=== PATIENT | male | born 1950 | race Caucasian/White ===

== ENCOUNTER 2017-06-30 16:34 | Observation (INO) | payer BC, MEDICARE ==
--- NOTE | 2017-06-30 16:57 | RAD ---
CHEST 1 VIEW: Date: 06/30/17 HISTORY: Palpitations. FINDINGS: Cardiac silhouette is magnified by projection. Pulmonary vasculature is unremarkable. Linear parenchy mal markings overlie the left lung base. Calcified granulomata are consistent with healed granulomato us disease. No lobar consolidation or evidence of pneumothorax. quality assurance monitor final leads overlie the henrik [address]. IMPRESSION: Nonspecific left basilar atelectasis. No active cardiopulmonary abnormalities are demonstrated. POS: [facility]
[2017-06-30 17:00] LABS: #Basophils 0.1 thou/uL (0.0-0.2); #Eosinphils 0.1 thou/uL (0.0-0.7); #Lymphocytes 1.9 thou/uL (1.20-3.40); #Monocytes 0.6 thou/uL (0.11-0.59); #Neutrophils 5.6 thou/uL (1.40-6.50); %Basophils 0.8 % (0.0-1.0); %Lymphocytes 23.3 % (21.0-51.0); %Monocytes 7.1 % (0.0-10.0); %Neutrophils 67.8 % (42.0-75.0); Hemoglobin 17.7 g/dL (14.0-18.0); Mean Corpuscular HGB CONC 34.8 g/dL (32.0-36.0); Mean Corpuscular Volume 89.1 fl (80.0-94.0); Mean Platelet Volume 7.6 fL (7.4-10.4); Platelet Count 197 thou/uL (130-400); RBC Distribution Width 12.3 % (11.5-14.5); White Blood Cell (WBC) Count 8.2 thou/uL (4.8-10.8)
[2017-06-30 17:08] LABS: PTT 28.4 SEC (22.9-36.1); Prothrombin Time 13.1 SEC (12.0-14.7)
[2017-06-30 17:22] LABS: ALT (SGPT) 56 U/L (8-55); AST (SGOT) 62 U/L (5-34); Albumin 4.4 g/dL (3.4-4.8); Alkaline Phosphatase 86 U/L (40-150); Anion Gap 15 mmol/L (10-20); BUN (Urea Nitrogen) 24 mg/dL (8.4-25.7); Bilirubin, Total 1.5 mg/dL (0.2-1.2); CK (CPK) 298 U/L (30-200); Calc. Creatinine Clearance 0 mL/min (70-130); Calcium 9.9 mg/dL (7.8-10.44); Carbon Dioxide 29 mmol/L (23-31); Chloride 99 mmol/L (98-107); Estimated GFR-MDRD 78; Globulin 3.5 g/dL (2.4-3.5); Glucose 97 mg/dL (80-115); Lipase 54 U/L (8-78); Potassium 4.3 mmol/L (3.5-5.1); Protein, Total 7.9 g/dL (5.8-8.1); Sodium 139 mmol/L (136-145)
[2017-06-30 17:24] LABS: Troponin I 0.011 ng/mL (< 0.028)
[2017-06-30 17:28] LABS: CKMB 7.4 ng/mL (0-6.6)
[2017-06-30] MEDS ORDERED: Nitroglycerin 2% Ointment 1 INCH/1 GM Packet ONE (17:38)
[2017-06-30] MEDS ORDERED: Acetaminophen 500 MG TAB ONE (18:22)
--- NOTE | 2017-06-30 18:25 | PDOC.FPRHP ---
- History of Present Illness Chief Complaint: Palpitations History of Present Illness: This is a 66 y/o M with a PMHx of ADHD, BPH, OA, and HTN who presented to the ED with palpitation. 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 States sensation of heart palpitations and flutters lasting around 10 minutes. Metter his pulse on carotids and notes elevated pulse to 180s. Resolved on its own. Occurred again around 1630 when he attempted to see his PCP. Associated symptoms during event includes dizziness/lightheadedness and SOB. Reports no changes in Vyvanse dosing. Has been on medication for several years. No significant prior history of these events. But reports not able to take Vyvanse before he exercises. Reports flu in April. Approximately 2 months ago, started noticing changes in his vision. Was evaluated by eye doctor and told eye changes were related to "blockage" in retinal capillaries. Otherwise denies any changes. Reports he is able to perform activities without complaints. Code status: Full ED Course: The patient was evaluated in the ED by DEE Ely and Dr. Win and was given 500mL NS bolus, 1inch nitrobid, and 243 mg aspirin. - Allergies/Adverse Reactions Allergies Allergy/AdvReac Type Severity Reaction Status Date / Time No Known Allergies Allergy Verified 06/30/17 20:05 - Home Medications Medication Instructions Recorded Confirmed Type Ascorbic Acid [Vitamin C] 1,000 mg PO DAILY 07/27/14 06/30/17 History Aspirin [Aspirin EC] 81 mg PO DAILY 07/27/14 06/30/17 History Diclofenac Sodium [Voltaren] 25 mg PO BID 07/27/14 06/30/17 History Lisdexamfetamine Dimesylate 50 mg PO BID 07/27/14 06/30/17 History [Vyvanse] Losartan/Hydrochlorothiazide 1 tab PO DAILY 07/27/14 06/30/17 History [Hyzaar] Multivitamin [Multivitamins] 1 cap PO DAILY 07/27/14 06/30/17 History Tamsulosin HCl [Flomax] 0.4 mg PO DAILY 07/27/14 06/30/17 History Glucosam/Chondr-Msm1/D3/C/Filiberto 1 each PO DAILY 06/30/17 06/30/17 History [Glucosamine-Chondr Complx Cplt] Melatonin 5 mg PO HS 06/30/17 06/30/17 History Omeprazole 20 mg PO HS 06/30/17 06/30/17 History - History PMHx: 1. HTN 2. Arthritis 3. ADHD 4. BPH PSHx: 1. [place] teeth removal 2. Vasectomy 3. Lipoma removal posterior neck FHx: Father - Colon ca Mother - stroke Social: . Former tobacco user (1 to 1/2 ppd since age 13 to 1994). Past history of alcoholism (5 years). No drug use. 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 PCP: Yolande - Review of Systems General: denies: fever/chills, weight/appetite/sleep changes, fatigue Eyes: reports: vision changes (Loss of portion of vision). denies: eye pain ENT: denies: nasal congestion, rhinorrhea Respiratory: reports: shortness of breath (During recent palpitations x2). denies: cough, congestion, exercise intolerance Cardiovascular: reports: palpitation. denies: chest pain, edema, paroxysmal nocturnal dyspnea, orthopnea Gastrointestinal: denies: nausea, vomiting, diarrhea, constipation, GI bleeding Genitourinary: denies: incontinence, dysuria, polyuria, discharge Skin: denies: rashes, lesions Musculoskeletal: reports: pain (With strenous activity), arthritis/arthralgias ( Stable). denies: tenderness, stiffness, swelling Neurological: denies: numbness, syncope, weakness Psychological: denies: anxiety, depression - Vital signs BP: 145/85 HR: 77 RR: 18 Tmax: 98.5 Pox: 98% on RA Wt: 88.45kg - Physical Exam Constitutional: NAD, awake, alert and oriented, well developed HEENT: normocephalic and atraumatic, PERRLA, EOMI, conjunctiva clear, no scleral icterus, grossly normal vision, grossly normal hearing, normal nasal mucosa, MMM Neck: supple, FROM, trachea midline, no JVD, no bruits Chest: no-tender to palpation, no lesions Heart: RRR, normal S1/S2, no murmurs/rubs/gallops, pulses present, no edema Lungs: CTAB, no respiratory distress, good air movement, no rales/rhonchi, no wheezing, no retractions Abdomen: soft, non-tender, bowel sounds present Musculoskeletal: normal structure, normal tone, ROM grossly normal Neurological: no focal deficit, CN II-XII intact, normal sensation Psychiatric: normal mood and affect, good judgment and insight, intact recent and remote memory FMR H&P: Results - Labs Result Diagrams: 06/30/17 16:49 03 16:49 Lab results: WBC 8.2 thou/uL (4.8-10.8) 06/30/17 16:49 Hgb 17.7 g/dL (14.0-18.0) 06/30/17 16:49 Hct 50.8 % (42.0-52.0) 06/30/17 16:49 MCV 89.1 fl (80.0-94.0) 06/30/17 16:49 Plt Count 197 thou/uL (130-400) 06/30/17 16:49 Neutrophils % 67.8 % (42.0-75.0) 06/30/17 16:49 Sodium 139 mmol/L (136-145) 06/30/17 16:49 Potassium 4.3 mmol/L (3.5-5.1) 06/30/17 16:49 Chloride 99 mmol/L (98-107) 06/30/17 16:49 Carbon Dioxide 29 mmol/L (23-31) 06/30/17 16:49 BUN 24 mg/dL (8.4-25.7) 06/30/17 16:49 Creatinine 0.96 mg/dL (0.6-1.3) 06/30/17 16:49 Glucose 97 mg/dL (80-115) 06/30/17 16:49 Calcium 9.9 mg/dL (7.8-10.44) 06/30/17 16:49 Total Bilirubin 1.5 mg/dL (0.2-1.2) H 06/30/17 16:49 AST 62 U/L (5-34) H 06/30/17 16:49 ALT 56 U/L (8-55) H 06/30/17 16:49 Alkaline Phosphatase 86 U/L (40-150) 06/30/17 16:49 Creatine Kinase 298 U/L (30-200) H 06/30/17 16:49 CK-MB (CK-2) 7.4 ng/mL (0-6.6) H* 06/30/17 16:49 B-Natriuretic Peptide 71.3 pg/mL (0-100) 06/30/17 16:49 Serum Total Protein 7.9 g/dL (5.8-8.1) 06/30/17 16:49 Albumin 4.4 g/dL (3.4-4.8) 06/30/17 16:49 Lipase 54 U/L (8-78) 06/30/17 16:49 - EKG Interpretation EKG: NSR, HR of 92 - Radiology Interpretation Chest x-ray Status: image reviewed by me, report reviewed by me Additional comment: Non-specific left basilar atelectasis. FMR H&P: A/P - Problem List (1) Palpitations Current Visit: Yes Status: Acute Code(s): R00.2 - PALPITATIONS (2) Abnormal cardiac enzyme level Current Visit: Yes Status: Acute Code(s): R74.8 - ABNORMAL LEVELS OF OTHER SERUM ENZYMES (3) Elevated LFTs Current Visit: Yes Status: Acute Code(s): R79.89 - OTHER SPECIFIED ABNORMAL FINDINGS OF BLOOD CHEMISTRY (4) HTN (hypertension) Current Visit: Yes Status: Acute Code(s): I10 - ESSENTIAL (PRIMARY) HYPERTENSION Qualifiers: Hypertension type: essential hypertension Qualified Code(s): I10 - Essential (primary) hypertension (5) ADHD Current Visit: Yes Status: Acute Qualifiers: Attention deficit-hyperactivity disorder type: unspecified Qualified Code(s ): F90.9 - Attention-deficit hyperactivity disorder, unspecified type (6) Arthritis Current Visit: Yes Status: Acute Code(s): M19.90 - UNSPECIFIED OSTEOARTHRITIS, UNSPECIFIED SITE (7) BPH (benign prostatic hyperplasia) Current Visit: Yes Status: Acute Code(s): N40.0 - BENIGN PROSTATIC HYPERPLASIA WITHOUT LOWER URINRY TRACT SYMP Qualifiers: Lower urinary tract symptom presence: unspecified whether lower urinary tract symptoms present Qualified Code(s): N40.0 - Benign prostatic hyperplasia without lower urinary tract symptoms - Plan Palpitations Unknown cause at this time, the patient has never had this before. Will rule out cardiac arrhythmias, hyperthyroidism, drug abuse. The patient reports tachycardia to the 180's, but it is unknown if this was sinus tachycardia. -Monitor on tele -TSH -UDS -Hold Vyvanse Abnormal Cardiac Enzymes The patient had an elevated CKMB to 7.4 as well as an elevated CK to 298 in the setting of palpitations, lightheadedness, and some SOB. Will rule-out ACS. -Stress test in AM -Trend CE -FLP to risk stratify the pt -Aspirin Elevated LFT's The patient has elevated LFT's with no known baseline. He reports that this has never been worked up before. He has a history of former alcohol abuse several years ago. -Hepatitis panel -RUQ US HTN -Continue home meds -Monitor BP ADHD -Will hold Vyvanse in the setting of palpitations and tachycardia BPH -Cont flomax Arthritis -Will hold Diclofenac in the setting of ACS rule-out VTE ppx: Lovenox Code Status: full Symptomatic meds will be provided Disposition/LOS: Obs on tele Length of stay, likely less than 48 hours FMR H&P: Upper Level - Pertinent history This is a 66 yo WM w/ PMH of HTN, ADHD, arthritis, presents w/ palpitations that started today, associated with SOB. Never had this in the past. He has been taking vyvanse for years and hasn't changed his dose recently. Yesterday he was outside doing more work than normal. PE: Gen: Pleasant, afebrile, AOx4 in no acute distress. CV: RRR. No murmurs. Neck: No carotid buis Resp: CTA bilaterally Abd: Soft non-tender, no rebound, no guarding. LE: no edema. Pulses +2 bilaterally pedal. 1) Palpitations - Admit to telemetry and observation. Will start ASA. Initial CK elevated. Will repeat CE x3, repeat EKG in am as had non-specific T wave changes. No ST elevation on EKG. Labs in am for FLP, TSH, Mag, Phos, UDS. Will hold NSAIDs and Vyvanse. Stress test in am. 2) HTN urgency - BP normalized with nitro paste. Will continue to monitor and add BP medications as needed. Currently asymptomatic. 3) Transamonitis - f/u with Hepatitis panel, RUQ US. 4) Sinus Tachycardic - Monitor on telemetry. S/p 500mL NS fluid bolus. 5) Elevated CK-MB and CK. Encourage PO intake of fluids. - Plan Date/Time: 06/30/171822 I, [], have evaluated this patient and agree with findings/plan as outlined by mechanical intern resident. Pertinent changes/additions are listed here. Attending Addendum - Attending Addendum Date/Time: 06/30/171855 I personally evaluated the patient and discussed the management with Dr. Middleton and Heriberto Antoine I agree with the History, Examination, Assessment and Plan documented above with any addition or exceptions noted below. 66 yo male with history of HTN, BPH, ADHD, and OsteoArthritis presents to [facility] ER for evaluation of 2 episodes of palpitations. Brief 10 min episodes today. Resolved on their own. Associated with SOB and lightheadedness. Initial cardiac labs mildly elevated CKMB and CK. However, trop I WNL. BP and HR stable during exam. EKG NSR. On review, noticed he has had evidence of mild palpitation with heavy exercise when he takes Vyvanse. Plan: Will admit to tele. Monitor overnight. Trend CE. Repeat EKG as needed. Hold Vyvanse. Stress in AM. On labs, noted to have elevated liver enzymes with past hx of EtOH abuse. Trend. Hep panel and RUQ sono. Will also rule out other possible co-morbidities. Chelita
[2017-06-30 19:42] VITALS: BMI 28.5
[2017-06-30] MEDS ORDERED: Nitroglycerin 0.4 MG TAB (25 Tab Bottle) PO PRN (19:49)
[2017-06-30] MEDS ORDERED: Senokot 8.6 MG TAB PO PRN (19:49)
[2017-06-30] MEDS ORDERED: Bisacodyl 5 MG TAB PO PRN (19:49)
[2017-06-30] MEDS ORDERED: Sodium Chloride 0.9% 1,000 ML IV SCH (20:15)
[2017-06-30] MEDS ORDERED: Ondansetron HCl/PF 4 MG/2 ML Vial IVP PRN (20:15)
[2017-06-30] MEDS ORDERED: Ondansetron ODT 4 MG TAB SL PRN (20:15)
[2017-06-30 20:29] LABS: Hemoglobin A1c 5.5 % (4.0-6.0)
[2017-06-30 20:41] LABS: Troponin I 0.013 ng/mL (< 0.028)
[2017-06-30 20:47] LABS: Magnesium 2.1 mg/dL (1.6-2.6); Phosphorus 3.4 mg/dL (2.3-4.7)
[2017-06-30 21:09] LABS: Thyroid Stimulating Hormone 1.5743 uIU/mL (0.35-4.94)
[2017-06-30 21:11] LABS: Amphetamine Detected (NotDetected); Barbiturates Screen Not Detected (NotDetected); Benzodiazepine Screen Not Detected (NotDetected); Cocaine Metabolite Screen Not Detected (NotDetected); Medtox Control Line Valid? VALID (VALID); Medtox Reader # READER 4; Methadone Not Detected (NotDetected); Methamphetamine Not Detected (NotDetected); Opiate Screen Not Detected (NotDetected); Oxycodone Screen Not Detected (NotDetected); Phencyclidine (PCP) Not Detected (NotDetected); THC/Cannabinoid Screen Not Detected (NotDetected); Tricyclic Screen Not Detected (NotDetected)
[2017-06-30] MEDS ORDERED: Melatonin 3 MG TAB PO SCH (23:15)
[2017-06-30 23:22] LABS: HBSAg Index 0.19 S/CO (0-0.99); Hep B Core Total Ab Non-Reactive (NonReactive); Hep B Core Total Index 0.07 S/CO (0-0.79); Hep B Surf Ag Non-Reactive S/CO (NonReactive); Hep C IgG Ab Non-Reactive (NonReactive); Hep C Index 0.19 S/CO (0-0.79)
[2017-06-30 23:23] LABS: CKMB 5.1 ng/mL (0-6.6); Troponin I 0.014 ng/mL (< 0.028)
[2017-06-30 23:28] LABS: HBSAB Concentration 0.03 mIU/mL; Hep B Surf AB Non-Reactive (NonReactive)
[2017-07-01 05:24] LABS: ALT (SGPT) 48 U/L (8-55); AST (SGOT) 44 U/L (5-34); Albumin 3.7 g/dL (3.4-4.8); Alkaline Phosphatase 71 U/L (40-150); Anion Gap 11 mmol/L (10-20); BUN (Urea Nitrogen) 21 mg/dL (8.4-25.7); Bilirubin, Total 1.3 mg/dL (0.2-1.2); CK (CPK) 157 U/L (30-200); Calc. Creatinine Clearance 95 mL/min (70-130); Calcium 9.3 mg/dL (7.8-10.44); Carbon Dioxide 29 mmol/L (23-31); Cardiac Risk 3.3 (Less than 4.5); Chloride 102 mmol/L (98-107); Cholesterol 133 mg/dl (< 200 Desired); Estimated GFR-MDRD 78; Globulin 2.8 g/dL (2.4-3.5); Glucose 106 mg/dL (80-115); HDL Cholesterol 40 mg/dL (>60 Neg Risk); LDL Cholesterol, Calculated 66 mg/dL; Potassium 3.4 mmol/L (3.5-5.1); Protein, Total 6.5 g/dL (5.8-8.1); Sodium 139 mmol/L (136-145); Triglycerides 135 mg/dL (Less than 150)
--- NOTE | 2017-07-01 06:23 | PDOC.FM ---
- Subjective Subjective: Patient is asymptomatic. No complaints. - Objective MAR Reviewed: Yes Vital Signs & Weight: Vital Signs (12 hours) Temp Pulse Resp BP BP Pulse Ox 07/01/17 03:50 98.4 F 55 L 12 132/76 99 06/30/17 20:04 99 06/30/17 19:46 98.6 F 76 20 06/30/17 19:45 98.6 F 76 20 143/86 H 100 Weight Weight 88.587 kg I&O: 06/29/17 06/30/17 07/01/17 06:59 06:59 06:59 Intake Total 550 Output Total 400 Balance 150 Result Diagrams: 06/30/17 16:49 07/01/17 04:55 <Elizabeth Buitrago - Last Filed: 07/01/17 14:54> - Objective Vital Signs & Weight: Vital Signs (12 hours) Temp Pulse Resp BP Pulse Ox 07/01/17 13:00 97.8 F 71 17 143/75 H 100 07/01/17 08:20 97.5 F L 59 L 16 07/01/17 07:50 97.5 F L 59 L 16 152/82 H 96 Weight Weight 88.587 kg I&O: 06/30/17 07/01/17 07/02/17 06:59 06:59 06:59 Intake Total 550 240 Output Total 400 Balance 150 240 Result Diagrams: 06/30/17 16:49 07/01/17 04:55 <Timo Lazcano - Last Filed: 07/01/17 18:54> Phys Exam - Physical Examination Constitutional: NAD Respiratory: clear to auscultation bilateral Cardiovascular: RRR Gastrointestinal: soft, non-tender Musculoskeletal: no edema, pulses present Neurological: moves all 4 limbs Psychiatric: A&O x 3 <Elizabeth Buitrago - Last Filed: 07/01/17 14:54> Dx/Plan (1) Palpitations Code(s): R00.2 - PALPITATIONS Status: Acute Plan: Likely secondary to SVT. No events on telemetry. TSH wnl. Stress test today to r/o ACS. recommend discontinuing Vyvanse. (2) HTN (hypertension) Code(s): I10 - ESSENTIAL (PRIMARY) HYPERTENSION Status: Acute QualifierTitle: Hypertension type: essential hypertension Qualified Code( s): I10 - Essential (primary) hypertension Plan: BP stable. Continue home antihypertensives. (3) Arthritis Code(s): M19.90 - UNSPECIFIED OSTEOARTHRITIS, UNSPECIFIED SITE Status: Acute (4) BPH (benign prostatic hyperplasia) Code(s): N40.0 - BENIGN PROSTATIC HYPERPLASIA WITHOUT LOWER URINRY TRACT SYMP Status: Acute QualifierTitle: Lower urinary tract symptom presence: unspecified whether lower urinary tract symptoms present Qualified Code(s): N40.0 - Benign prostatic hyperplasia without lower urinary tract symptoms Plan: Continue Flomax. (5) Elevated LFTs Code(s): R79.89 - OTHER SPECIFIED ABNORMAL FINDINGS OF BLOOD CHEMISTRY Status : Acute Plan: Improving. RUQ pending. (6) ADHD Status: Acute QualifierTitle: Attention deficit-hyperactivity disorder type: unspecified Qualified Code(s): F90.9 - Attention-deficit hyperactivity disorder, unspecified type Plan: Vyvanse held. <Elizabeth Buitrago - Last Filed: 07/01/17 14:54> Attending Addendum - Attending Addendum Date/Time: 07/01/17 020 I personally evaluated the patient and discussed the management with Dr. Buitrago I agree with the History, Examination, Assessment and Plan documented above with any addition or exceptions noted below.Patient with negative stress test rec avoid stimulants caffiene, pseudoephedrine,OTC decongestant cold remedies symptoms likely related to stimulant RX yvanse advised outpatient event monitoring and hold vyvanse discuss suitable alternative with PCP. Patient endorses he took bupropion while living in [place]. Patient is stable for discharge . <Timo Lazcano - Last Filed: 07/01/17 18:54>
--- NOTE | 2017-07-01 07:40 | ULT ---
SONOGRAM RIGHT UPPER QUADRANT: HISTORY: Abnormal liver function tests. FINDINGS: Gallbladder has a normal appearance without evidence of stones. The common duct is 0.3 cm diameter. The liver is heterogeneous and diffusely echogenic without focal mass or intrahepatic biliary dilata tion. No free fluid. Multiple cysts arise from the cortex of the right kidney. Hyperechoic foci ar e also present and may represent nonobstructing urinary tract stones or cortical calcifications. IMPRESSION: 1. No evidence of gallstones or biliary obstruction. 2. Hepatosteatosis. POS: [facility]
[2017-07-01] MEDS ORDERED: Prevnar 13-Val Conj/PF 0.5 ML SYRINGE IM ONE (09:00)
[2017-07-01] MEDS ORDERED: Tamsulosin HCl 0.4 MG CAP PO SCH (09:00)
[2017-07-01] MEDS ORDERED: Losartan/Hydrochlorothiazide 100 mg/25 mg Tablet PO SCH (09:00)
[2017-07-01] MEDS ORDERED: Aspirin 325 MG TAB PO SCH (09:00)
[2017-07-01] MEDS ORDERED: Ascorbic Acid 500 mg Chewable Tablet PO SCH (09:00)
[2017-07-01] MEDS ORDERED: Enoxaparin Sodium 40 MG/0.4 ML SYRINGE SC SCH (09:00)
[2017-07-01 13:05] VITALS: BP 143/75; TEMP 97.8
--- NOTE | 2017-07-01 13:40 | NM ---
CARDIAC SPECT: HISTORY: A 66-year-old male with chest pain, hypertension, family history of coronary artery disease. TECHNIQUE: A myocardial perfusion scan was performed using the single-isotope 1-day protocol with Technetium 99m sestamibi. Nine mCi were injected intravenously for the rest exam followed by 27 mCi for the stress study. Exercise stress was monitored and interpreted by Adolfo Fischer FINDINGS: Homogeneous tracer distribution is seen on the myocardial segments on stress and rest images without fixed or reversible defects. GATED SPECT LVEF: 56%. WALL MOTION EXAM: Normal. IMPRESSION: Normal myocardial perfusion scan. POS: [facility]
[2017-07-01] MEDS ORDERED: Melatonin 3 MG TAB PO SCH (21:00)
[2017-07-01] MEDS ORDERED: Atorvastatin Calcium 40 MG TAB PO SCH (21:00)
--- NOTE | 2017-07-02 13:51 | DIS-2 ---
DATE OF ADMISSION: 06/30/2017 DATE OF DISCHARGE: 07/01/2017 RESIDENT: Elizabeth Buitrago M.D., PGY-2. ADMITTING ATTENDING: Yael Bartlett M.D. DISCHARGE ATTENDING: Timo Lazcano M.D. CONSULTS: None. PROCEDURES: 1. Chest x-ray that showed nonspecific left bibasilar atelectasis, otherwise no acute cardiopulmonar y process. 2. Nuclear medicine stress test which showed normal myocardial perfusion, left ventricular EF 56%. 3. Right upper quadrant ultrasound that showed no evidence of gallstones or biliary obstruction; hep naomi steatosis. PRIMARY DIAGNOSES: 1. Palpitations. 2. Elevated liver function tests. SECONDARY DIAGNOSES: 1. Attention deficit hyperactivity disorder. 2. Benign prostatic hypertension. 3. Arthritis. 4. Hypertension. DISCHARGE MEDICATIONS: 1. Atorvastatin 40 mg p.o. at bedtime. 2. Melatonin 5 mg p.o. at bedtime. 3. Omeprazole 20 mg p.o. at bedtime. 4. Aspirin 81 mg p.o. daily. 5. Diclofenac sodium 25 mg p.o. b.i.d. 6. Hyzaar 100 mg/25 mg 1 tab p.o. daily. 7. Multivitamins. 8. Flomax 0.4 mg p.o. daily. 9. Vitamin C 1000 mg p.o. daily. 10. Glucosamine chondroitin complex 1 tablet p.o. daily. DISCONTINUED MEDICATIONS: Vyvanse 50 mg p.o. b.i.d. HISTORY OF PRESENT ILLNESS AND HOSPITAL COURSE: The patient is a 66-year-old male with a chief compl aint of palpitations that occurred on two separate occasions and each were accompanied by shortness o f breath. The patient was given fluids, possible nitro and aspirin in the emergency department. He was admitted to telemetry for further monitoring. A nuclear medicine stress test was ordered to rule out coronary artery disease. TSH was normal. Nuclear medicine stress test was normal as well and n o events were captured on telemetry overnight. It was thought that patient's palpitations were essen tially related to a SVT, possibly secondary to Vyvanse use. For this reason, it was recommended that the patient discuss potentially discontinuing Vyvanse and transitioning to a non-stimulant medicatio n. The patient may also benefit from Holter monitoring to capture any future palpitations. Regarding patient's elevated liver function tests, the patient was found to have on admission AST of 62, ALT of 56, total bilirubin of 1.5, direct bilirubin 0.5. The patient has a former history of alc ohol abuse. A right upper quadrant ultrasound was ordered which showed the above findings. The martha ent was started on high dose statin therapy. He will need further outpatient followup regarding fatt y liver disease. Regarding patient's chronic medical problems, all home medications were restarted and his problems re mained stable. DISPOSITION: Stable. DISCHARGE INSTRUCTIONS: 1. Location: Home. 2. Diet: Heart healthy. 3. Activity: Ad mitesh. 4. Followup: The patient may follow up with either his primary care provider, Dr. Bocanegra in 7-10 days.
--- NOTE | 2017-07-05 12:37 | EKG ---
Test Reason : Blood Pressure : / mmHG Vent. Rate : 092 BPM Atrial Rate : 092 BPM P-R Int : 130 ms QRS Dur : 090 ms QT Int : 364 ms P-R-T Axes : 020 002 -02 degrees QTc Int : 450 ms Normal sinus rhythm Normal ECG Confirmed by TOÑITO CORTES, SOLOMON ([id number]), movie editor ROX PACHECO ([id number]) on 07/05/2017 12:36:16 PM Referred By: Confirmed By:SOLOMON SIBLEY MD
--- NOTE | 2017-07-08 19:51 | EKG ---
Test Reason : Blood Pressure : / mmHG Vent. Rate : 077 BPM Atrial Rate : 077 BPM P-R Int : 144 ms QRS Dur : 084 ms QT Int : 388 ms P-R-T Axes : 052 013 006 degrees QTc Int : 439 ms Normal sinus rhythm Nonspecific ST abnormality Abnormal ECG When compared with ECG of 27-JUL-2014 08:33, No significant change was found Confirmed by CHRISTIANA MIGUEL (2) on 07/08/2017 7:51:08 PM Referred By: HILLARY Confirmed By:CHRISTIANA MIGUEL
--- NOTE | 2017-07-08 19:55 | EKG ---
Test Reason : Blood Pressure : / mmHG Vent. Rate : 054 BPM Atrial Rate : 054 BPM P-R Int : 150 ms QRS Dur : 098 ms QT Int : 450 ms P-R-T Axes : 028 -03 023 degrees QTc Int : 426 ms Sinus bradycardia Minimal voltage criteria for LVH, may be normal variant Nonspecific T wave abnormality Abnormal ECG When compared with ECG of 30-JUN-2017 21:07, (Unconfirmed) No significant change was found Confirmed by CHRISTIANA MIGUEL (2) on 07/08/2017 7:55:31 PM Referred By: JOSE ALFREDO SCANLON Confirmed By:CHRISTIANA MIGUEL
== END 2017-07-01 15:28 | disposition home or self-care (01) ==
LOC: ERS 16:34 → 2SW 19:31
PROVIDERS: ADMIT Family Medicine; ATTEND Family Medicine
DX: R00.2 Palpitations (principal); F90.9 Attention-deficit hyperactivity disorder, unspecified type; N40.0 Benign prostatic hyperplasia without lower urinary tract symptoms; M19.90 Unspecified osteoarthritis, unspecified site; I10 Essential (primary) hypertension; R74.8 Abnormal levels of other serum enzymes; R79.89 Other specified abnormal findings of blood chemistry; Z79.82 Long term (current) use of aspirin; Z79.899 Other long term (current) drug therapy; Z98.52 Vasectomy status; Z98.818 Other dental procedure status; Z98.890 Other specified postprocedural states; Z87.891 Personal history of nicotine dependence
CPT/HCPCS: 71045; 76705; 78452; 80053; 80061; 80306; 82248; 82550 ×2; 82553 ×2; 83036; 83690; 83735; 83880; 84100; 84484 ×2; 85610; 85730; 86704; 86706; 86708; 86803; 87340; 93005 ×2; 93017; 94760 ×2; 99285; A9500; G0378; 36415; 84443; 85025; 93010; 96360; A4216; J1650

== ENCOUNTER 2017-07-09 23:12 | Emergency (ER) | payer MEDICARE ==
[2017-07-10] MEDS ORDERED: Clindamycin 150 MG CAP ONE (02:47)
[2017-07-10] MEDS ORDERED: Ketorolac Tromethamine 30 MG/ML VIAL ONE (02:47)
== END 2017-07-10 03:28 | disposition home or self-care (01) ==
LOC: ERS 23:12
DX: K02.9 Dental caries, unspecified (principal); I10 Essential (primary) hypertension; F90.9 Attention-deficit hyperactivity disorder, unspecified type; Z87.891 Personal history of nicotine dependence; Z79.899 Other long term (current) drug therapy
CPT/HCPCS: 96372; J1885

== ENCOUNTER 2019-09-29 10:54 | Outpatient (CLI) | payer MEDICARE, OTHER | END 2019-09-29 10:55 | disposition home or self-care (01) | LOC: LABBT 10:54 | PROVIDERS: ATTEND Internal Medicine Cardiovascular Disease | DX: Z01.812 Encounter for preprocedural laboratory examination (principal); Z11.59 Encounter for screening for other viral diseases; I47.1 Supraventricular tachycardia | CPT/HCPCS: 87635; U0003 ==

== ENCOUNTER 2019-11-08 09:35 | Inpatient (IN) | payer MEDICARE ==
--- NOTE | 2019-11-08 10:41 | CT ---
CT BRAIN WITHOUT CONTRAST: HISTORY: Injury, headache FINDINGS: No evidence of acute infarct, intra-axial hemorrhage, midline shift or abnormal extra-axial fluid col lections is seen. There is a small amount of acute subdural hemorrhage in the falx and the tentorium. The ventricular size is appropriate and the basilar cisterns are patent. The bony calvariu m is intact. The visualized paranasal sinuses and mastoid air cells are well aerated. IMPRESSION: Small acute subdural hematoma. Discussed over the telephone with ER physician Dr. Arrieta at 10:37 AM
[2019-11-08] MEDS ORDERED: Adacel (T-DAP) 0.5 ML SYRINGE ONE (10:45)
[2019-11-08] MEDS ORDERED: Bacitracin 1 PK ONE (10:45)
[2019-11-08] MEDS ORDERED: Lidocaine 1% PF 5 ML VIAL ONE (10:52)
[2019-11-08] MEDS ORDERED: Lidocaine 1% (PF) 30 ML VIAL ONE ×2 (10:54→11:05)
[2019-11-08] MEDS ORDERED: Lidocaine 1% w/Epinephrine 1:100K 20 ML VIAL ONE (10:56)
[2019-11-08] MEDS ORDERED: Ondansetron PF 4 MG/2 ML Vial IVP PRN ×2 (11:39→19:38)
[2019-11-08] MEDS ORDERED: Dextrose 5% in Water 1,000 ML IV PRN (11:39)
[2019-11-08] MEDS ORDERED: Dextrose 50% Abboject 50 ML SYRINGE SLOW IVP PRN ×2 (11:39→19:37)
[2019-11-08] MEDS ORDERED: hydrALAZINE 20 MG/ML VIAL SLOW IVP PRN ×2 (11:39→19:38)
[2019-11-08] MEDS ORDERED: traMADol HCl 50 MG TAB PO PRN ×4 (11:44→19:39)
[2019-11-08] MEDS ORDERED: Sodium Chloride 0.9% 1,000 ML IV SCH (11:45)
--- NOTE | 2019-11-08 12:05 | CT ---
CT CERVICAL SPINE WITH CORONAL AND SAGITTAL REFORMATIONS AND NO IV CONTRAST: HISTORY: Injury, neck pain FINDINGS: Multilevel degenerative changes are present. There is loss of cervical lordosis. No fracture, subluxation or facet malalignment is identified. No prevertebral soft tissue swelling is apparent. The visualized lung apices are unremarkable. IMPRESSION: No CT evidence for fracture or traumatic subluxation.
[2019-11-08 12:06] LABS: PTT 24.2 sec (22.9-36.1); Prothrombin Time 12.7 sec (12.0-14.7)
[2019-11-08 12:07] LABS: #Basophils 0.1 thou/uL (0.0-0.2); #Monocytes 0.6 thou/uL (0.11-0.59); #Neutrophils 12.2 thou/uL (1.40-6.50); %Basophils 0.5 % (0.0-1.0); %Eosinophils 0.2 % (0.0-10.0); %Lymphocytes 7.5 % (21.0-51.0); %Monocytes 4.1 % (0.0-10.0); %Neutrophils 87.7 % (42.0-75.0); Hemoglobin 17.6 g/dL (14.0-18.0); Mean Corpuscular HGB CONC 33.8 g/dL (32.0-36.0); Mean Corpuscular Hemoglobin 30.2 pg (27.0-31.0); Mean Corpuscular Volume 89.4 fL (78.0-98.0); Platelet Count 176 thou/uL (130-400); RBC Distribution Width 12.6 % (11.5-14.5); Red Blood Cell (RBC) Count 5.81 mill/uL (4.70-6.10); White Blood Cell (WBC) Count 13.9 thou/uL (4.8-10.8)
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
[2019-11-08 12:22] LABS: Lactic Acid 1.4 mmol/L (0.5-2.2)
[2019-11-08 12:26] LABS: ALT (SGPT) 49 U/L (8-55); AST (SGOT) 56 U/L (5-34); Albumin 4.6 g/dL (3.4-4.8); Alkaline Phosphatase 84 U/L (40-110); Anion Gap 13 mmol/L (10-20); BUN (Urea Nitrogen) 22 mg/dL (8.4-25.7); Bilirubin, Total 2.5 mg/dL (0.2-1.2); Calc. Creatinine Clearance 0 mL/min (70-130); Calcium 10.5 mg/dL (7.8-10.44); Carbon Dioxide 28 mmol/L (23-31); Chloride 102 mmol/L (98-107); Estimated GFR-MDRD 64; Globulin 3.3 g/dL (2.4-3.5); Glucose 117 mg/dL (80-115); Magnesium 2.2 mg/dL (1.6-2.6); Phosphorus 2.4 mg/dL (2.3-4.7); Potassium 3.4 mmol/L (3.5-5.1); Protein, Total 7.9 g/dL (5.8-8.1); Sodium 140 mmol/L (136-145)
[2019-11-08] MEDS ORDERED: Potassium Phosphate 30 MMOL in Sodium Chloride 0.9% 250 ML 250 ML IVPB SCH (14:00)
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
[2019-11-08] MEDS: Acetaminophen 500 MG TAB PO SCH ×3 (16:11→23:26)
[2019-11-08 16:25] VITALS: BMI 27.1
[2019-11-08] MEDS: Bacitracin 1 PK TOP SCH (19:44)
[2019-11-08] MEDS: Senokot S 8.6-50 MG TAB PO SCH (19:44)
[2019-11-08] MEDS ORDERED: Famotidine/PF 20 mg/2ml Vial SLOW IVP SCH (21:00)
[2019-11-08] MEDS ORDERED: Senokot S 8.6-50 MG TAB PO SCH (21:00)
[2019-11-08] MEDS ORDERED: Losartan/Hydrochlorothiazide 100 mg/25 mg Tablet PO SCH ×2 (21:00)
[2019-11-08] MEDS ORDERED: Bacitracin 1 PK TOP SCH (21:00)
[2019-11-09] MEDS: Acetaminophen 500 MG TAB PO SCH ×2 (05:43→12:14)
--- NOTE | 2019-11-09 08:26 | CT ---
CT Brain WO Con HISTORY: Follow-up of subdural hematoma COMPARISON: Previous day FINDINGS: The small acute subdural hematoma noted on the previous exam is stable. No new areas of infarcts or h emorrhages are seen. IMPRESSION: Stable exam.
[2019-11-09] MEDS ORDERED: Tamsulosin HCl 0.4 MG CAP PO SCH ×2 (09:00)
[2019-11-09] MEDS ORDERED: Polyethylene Glycol 3350 17 GM Packet PO SCH ×3 (09:00)
[2019-11-09] MEDS: Bacitracin 1 PK TOP SCH (09:36)
[2019-11-09] MEDS: Senokot S 8.6-50 MG TAB PO SCH (09:51)
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
[2019-11-09 12:03] VITALS: BP 143/80; TEMP 98.2
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
== END 2019-11-09 13:10 | disposition home or self-care (01) | DRG 86 ==
LOC: ERS 09:35 → SURG A 15:47
PROVIDERS: ADMIT Specialist; ATTEND Specialist
PROC: 0CQ0XZZ Repair Upper Lip, External Approach (ICD-10-PCS; principal; 2019-11-08)
DX: S06.5X1A Traumatic subdural hemorrhage with loss of consciousness of 30 minutes or less, initial encounter (principal); I47.1 Supraventricular tachycardia; I10 Essential (primary) hypertension; N40.0 Benign prostatic hyperplasia without lower urinary tract symptoms; S80.812A Abrasion, left lower leg, initial encounter; S80.811A Abrasion, right lower leg, initial encounter; S40.811A Abrasion of right upper arm, initial encounter; R40.2362 Coma scale, best motor response, obeys commands, at arrival to emergency department; R40.2142 Coma scale, eyes open, spontaneous, at arrival to emergency department; R40.2252 Coma scale, best verbal response, oriented, at arrival to emergency department; V23.4XXA Motorcycle driver injured in collision with car, pick-up truck or van in traffic accident, initial encounter; S01.511A Laceration without foreign body of lip, initial encounter; Y92.410 Unspecified street and highway as the place of occurrence of the external cause; Z79.899 Other long term (current) drug therapy
CPT/HCPCS: 36415; 70450; 70486; 72125; 80053; 83605; 83735; 84100; 85025; 85610; 85730; 90715; J2001; J7050

== ENCOUNTER 2020-09-23 19:30 | Outpatient (CLI) | payer MEDICARE | END 2020-09-23 19:31 | disposition home or self-care (01) | LOC: SLEEPLAB 19:30 | PROVIDERS: ATTEND Family Medicine | DX: G47.33 Obstructive sleep apnea (adult) (pediatric) (principal); R06.83 Snoring; G47.00 Insomnia, unspecified; I10 Essential (primary) hypertension; F90.9 Attention-deficit hyperactivity disorder, unspecified type; G47.10 Hypersomnia, unspecified | CPT/HCPCS: 95811 ==

== ENCOUNTER 2021-03-11 16:34 | Inpatient (IN) | payer MEDICARE ==
[2021-03-11] MEDS ORDERED: Aspirin Chewable 81 MG TAB ONE (16:49)
[2021-03-11] MEDS ORDERED: Metoprolol Tartrate 5 MG/5 ML VIAL ONE (16:49)
[2021-03-11 17:03] LABS: #Basophils 0.1 thou/uL (0.0-0.2); #Eosinphils 0.1 thou/uL (0.0-0.7); #Lymphocytes 1.9 thou/uL (1.20-3.40); #Monocytes 0.8 thou/uL (0.11-0.59); #Neutrophils 6.5 thou/uL (1.40-6.50); %Basophils 0.8 % (0.0-1.0); %Eosinophils 1.2 % (0.0-10.0); %Lymphocytes 20.6 % (21.0-51.0); %Monocytes 8.5 % (0.0-10.0); Hemoglobin 17.8 g/dL (14.0-18.0); Mean Corpuscular HGB CONC 35.1 g/dL (32.0-36.0); Mean Corpuscular Hemoglobin 31.3 pg (27.0-31.0); Mean Corpuscular Volume 89.2 fL (78.0-98.0); Mean Platelet Volume 9.1 fL (7.4-10.4); Platelet Count 177 thou/uL (130-400); RBC Distribution Width 12.3 % (11.5-14.5); Red Blood Cell (RBC) Count 5.69 mill/uL (4.70-6.10); White Blood Cell (WBC) Count 9.4 thou/uL (4.8-10.8)
[2021-03-11 17:18] LABS: ALT (SGPT) 18 U/L (8-55); AST (SGOT) 33 U/L (5-34); Albumin 4.2 g/dL (3.4-4.8); Alkaline Phosphatase 74 U/L (40-110); Anion Gap 15 mmol/L (10-20); BUN (Urea Nitrogen) 15 mg/dL (8.4-25.7); Bilirubin, Total 2.3 mg/dL (0.2-1.2); Calc. Creatinine Clearance 0 mL/min (70-130); Carbon Dioxide 25 mmol/L (23-31); Chloride 103 mmol/L (98-107); Globulin 3.4 g/dL (2.4-3.5); Glucose 105 mg/dL (80-115); Potassium 3.7 mmol/L (3.5-5.1); Protein, Total 7.6 g/dL (5.8-8.1); Sodium 139 mmol/L (136-145)
[2021-03-11 18:36] LABS: Prothrombin Time 12.7 sec (12.0-14.7)
[2021-03-11] MEDS ORDERED: Acetaminophen 325 MG TAB PO PRN (19:10)
[2021-03-11] MEDS ORDERED: Ondansetron ODT 4 MG TAB PO PRN (19:10)
[2021-03-11] MEDS ORDERED: Enoxaparin Sodium 40 MG/0.4 ML SYRINGE SC SCH ×2 (19:15→22:15)
[2021-03-11 20:32] LABS: Phosphorus 3.7 mg/dL (2.3-4.7)
[2021-03-11 20:51] VITALS: BMI 26.8
[2021-03-11] MEDS ORDERED: Losartan/Hydrochlorothiazide 100 mg/25 mg Tablet PO SCH (21:00)
[2021-03-12 05:33] LABS: #Basophils 0.1 thou/uL (0.0-0.2); #Eosinphils 0.2 thou/uL (0.0-0.7); #Lymphocytes 1.9 thou/uL (1.20-3.40); #Monocytes 0.7 thou/uL (0.11-0.59); #Neutrophils 4.1 thou/uL (1.40-6.50); %Eosinophils 2.2 % (0.0-10.0); %Lymphocytes 27.5 % (21.0-51.0); %Monocytes 10.3 % (0.0-10.0); Hemoglobin 16.9 g/dL (14.0-18.0); Mean Corpuscular HGB CONC 32.4 g/dL (32.0-36.0); Mean Corpuscular Hemoglobin 29.3 pg (27.0-31.0); Mean Corpuscular Volume 90.3 fL (78.0-98.0); Platelet Count 172 thou/uL (130-400); RBC Distribution Width 12.4 % (11.5-14.5); Red Blood Cell (RBC) Count 5.76 mill/uL (4.70-6.10)
[2021-03-12 05:50] LABS: Bilirubin, Direct 0.6 mg/dL (0.1-0.3); Bilirubin, Total 2.6 mg/dL (0.2-1.2)
[2021-03-12 05:56] LABS: ALT (SGPT) 16 U/L (8-55); AST (SGOT) 22 U/L (5-34); Albumin 3.8 g/dL (3.4-4.8); Alkaline Phosphatase 67 U/L (40-110); Anion Gap 13 mmol/L (10-20); BUN (Urea Nitrogen) 14 mg/dL (8.4-25.7); Bilirubin, Total 2.7 mg/dL (0.2-1.2); Calc. Creatinine Clearance 71 mL/min (70-130); Calcium 9.6 mg/dL (7.8-10.44); Carbon Dioxide 30 mmol/L (23-31); Chloride 103 mmol/L (98-107); Globulin 2.8 g/dL (2.4-3.5); Glucose 89 mg/dL (80-115); Potassium 3.8 mmol/L (3.5-5.1); Protein, Total 6.6 g/dL (5.8-8.1); Sodium 142 mmol/L (136-145)
[2021-03-12] MEDS ORDERED: Enoxaparin Sodium 80 MG/0.8 ML SYRINGE SC SCH (09:00)
[2021-03-12] MEDS ORDERED: Tamsulosin HCl 0.4 MG CAP PO SCH (09:00)
[2021-03-12] MEDS ORDERED: Enoxaparin Sodium 40 MG/0.4 ML SYRINGE SC SCH (09:00)
[2021-03-12 11:12] LABS: SARS-CoV-2 PCR by NAA Not Detected (NotDetected)
[2021-03-12 15:41] VITALS: BP 151/86; TEMP 97.5
[2021-03-12] MEDS ORDERED: Dronedarone HCl 400 MG TAB PO SCH (17:00)
[2021-03-12] MEDS ORDERED: Apixaban 5 MG TAB PO SCH (21:00)
== END 2021-03-12 16:30 | disposition home or self-care (01) | DRG 310 ==
LOC: ERS 16:34 → 2SW 18:44 → OBSVTOIN 03-12 07:23
PROVIDERS: ADMIT Student in an Organized Health Care Education/Training Program; ATTEND Student in an Organized Health Care Education/Training Program
DX: I48.0 Paroxysmal atrial fibrillation (principal); I10 Essential (primary) hypertension; N40.0 Benign prostatic hyperplasia without lower urinary tract symptoms; Z66 Do not resuscitate; I47.1 Supraventricular tachycardia; F90.9 Attention-deficit hyperactivity disorder, unspecified type; G47.33 Obstructive sleep apnea (adult) (pediatric); M19.90 Unspecified osteoarthritis, unspecified site; Z20.822 Contact with and (suspected) exposure to COVID-19; Z88.8 Allergy status to other drugs, medicaments and biological substances
CPT/HCPCS: 36415; 71045; 80053; 82247; 83735; 84100; 84443; 84484; 85025; 85610; 93005; 93306; 96372; G0378; J1650; U0003; U0005

== ENCOUNTER 2022-05-03 07:48 | Outpatient (CLI) | payer MEDICARE ==
[2022-05-03] MEDS ORDERED: Iopamidol 370 76% 100 ML VIAL ONE (15:48)
== END 2022-05-03 07:49 | disposition home or self-care (01) ==
LOC: CT 07:48
PROVIDERS: ATTEND Urology
DX: N40.1 Benign prostatic hyperplasia with lower urinary tract symptoms (principal); R35.0 Frequency of micturition; R97.20 Elevated prostate specific antigen [PSA]; Q63.1 Lobulated, fused and horseshoe kidney; K57.30 Diverticulosis of large intestine without perforation or abscess without bleeding; K80.20 Calculus of gallbladder without cholecystitis without obstruction
CPT/HCPCS: 74178; 82565; Q9967

== ENCOUNTER 2024-03-08 12:00 | Inpatient (IN) | payer MEDICARE ==
[2024-03-22] MEDS ORDERED: Lidocaine 1% (PF) 30 ML VIAL ONE (06:41)
[2024-03-22] MEDS ORDERED: Midazolam HCl 2 mg/2 ml Vial ONE (06:41)
[2024-03-22] MEDS ORDERED: Bupivacaine 0.25% HCL 30 ML VIAL ONE (06:42)
[2024-03-22] MEDS ORDERED: fentaNYL 50 mcg/mL 1 mL Vial ONE (06:42)
[2024-03-22] MEDS ORDERED: Lidocaine 1% MPF 2 ML VIAL ONE ×2 (06:46→06:54)
[2024-03-22] MEDS ORDERED: LevoFLOXacin D5W 500 mg (100 mL) BAG ONE (06:54)
[2024-03-22] MEDS ORDERED: ceFOXitin 1 GM VIAL ONE ×2 (06:55→08:31)
[2024-03-22] MEDS ORDERED: PROPOFOL 20 ML ONE (07:19)
[2024-03-22] MEDS ORDERED: Fentanyl 250 MCG/5 ML VIAL ONE (07:19)
[2024-03-22 07:26] LABS: Prothrombin Time 13.2 sec (12.0-14.7)
[2024-03-22 07:27] LABS: PTT 29.1 sec (22.9-36.1)
[2024-03-22] MEDS ORDERED: ePHEDrine Sulfate 50 MG/10 ML VIAL ONE (08:52)
[2024-03-22] MEDS ORDERED: PHENYLEPHRINE-NS 100 MCG/ML 10 ML SYRINGE ONE ×2 (08:52→10:03)
[2024-03-22] MEDS ORDERED: Dexamethasone 4 mg/ml Vial ONE (10:02)
[2024-03-22] MEDS ORDERED: Rocuronium Bromide 10 MG/ML (10ML VIAL) ONE (10:02)
[2024-03-22] MEDS ORDERED: NEOSTIGMINE 3 MG/3 ML SYRINGE ONE (11:49)
[2024-03-22] MEDS ORDERED: Glycopyrrolate 0.2 MG/ML 5 ML SYRINGE ONE (11:49)
[2024-03-22] MEDS ORDERED: Acetaminophen 500 MG TAB PO PRN (12:42)
[2024-03-22] MEDS ORDERED: diphenhydrAMINE 50 MG/ML VIAL IVP PRN (12:42)
[2024-03-22] MEDS ORDERED: Morphine 2 MG/ML VIAL SLOW IVP PRN (12:42)
[2024-03-22] MEDS ORDERED: Ondansetron PF 4 MG/2 ML Vial IVP PRN ×2 (12:42→15:24)
[2024-03-22] MEDS ORDERED: Hyoscyamine SL 0.125 MG TAB ONE (12:49)
[2024-03-22] MEDS ORDERED: fentaNYL PF 100 MCG/2 ML SYRINGE ONE (13:14)
[2024-03-22 13:31] LABS: #Basophils 0.03 10x3/uL (0.0-0.2); #Eosinophils Less than 0.03 10x3/uL (0.0-0.7); %Basophils 0.2 % (0.0-1.0); %Eosinophils 0.1 % (0.0-10.0); %Monocytes 2.2 % (0.0-10.0); Hematocrit 43.6 % (42.0-52.0); Hemoglobin 15.1 g/dL (14.0-18.0); Mean Corpuscular HGB CONC 34.6 g/dL (32.0-36.0); Mean Corpuscular Hemoglobin 29.8 pg (27.0-31.0); Mean Platelet Volume 11.4 fL (7.4-10.4); Platelet Count 144 10x3/uL (130-400); RBC Distribution Width 13.1 % (11.5-14.5); Red Blood Cell (RBC) Count 5.07 mill/uL (4.70-6.10)
[2024-03-22] MEDS ORDERED: Melatonin 3 MG TAB PO PRN (13:37)
[2024-03-22 13:50] LABS: Anion Gap 13 mmol/L (10-20); BUN (Urea Nitrogen) 14 mg/dL (8.4-25.7); Calc. Creatinine Clearance 65 mL/min (70-130); Calcium 8.8 mg/dL (7.8-10.44); Carbon Dioxide 23 mmol/L (23-31); Chloride 105 mmol/L (98-107); Estimated GFR 60; Glucose 143 mg/dL (83-110); Potassium 3.8 mmol/L (3.5-5.1); Sodium 137 mmol/L (136-145)
[2024-03-22] MEDS ORDERED: Phenazopyridine HCl 100 MG TAB PO PRN (15:25)
[2024-03-22 15:27] VITALS: BMI 26.0
[2024-03-22] MEDS: Sodium Chloride 0.9% 1,000 ML IV SCH (17:52)
[2024-03-22] MEDS: Dronedarone HCl 400 MG TAB PO SCH (17:53)
[2024-03-22] MEDS: Hyoscyamine SL 0.125 MG TAB SL SCH (17:53)
[2024-03-22] MEDS: HYDROcodone/Acetaminophen 7.5/325 mg Tablet PO PRN (20:19)
[2024-03-22] MEDS: Losartan 25 MG TAB PO SCH (20:19)
[2024-03-22] MEDS: Docusate 100 MG CAP PO SCH (20:19)
[2024-03-22] MEDS: Hydrochlorothiazide 25 MG TAB PO SCH (20:19)
[2024-03-22] MEDS ORDERED: Famotidine/PF 20 mg/2ml Vial SLOW IVP SCH (21:00)
[2024-03-23] MEDS: cefTRIAXone\\ROCEPHIN 1 GM in Sodium Chloride 0.9% 100 ML IVPB SCH (05:13)
[2024-03-23 05:29] LABS: #Basophils 0.03 10x3/uL (0.0-0.2); #Eosinophils Less than 0.03 10x3/uL (0.0-0.7); %Basophils 0.2 % (0.0-1.0); %Lymphocytes 7.6 % (21.0-51.0); %Monocytes 8.3 % (0.0-10.0); %Neutrophils 83.3 % (42.0-75.0); Hematocrit 44.2 % (42.0-52.0); Hemoglobin 15.1 g/dL (14.0-18.0); Mean Corpuscular HGB CONC 34.2 g/dL (32.0-36.0); Mean Corpuscular Hemoglobin 29.9 pg (27.0-31.0); Mean Corpuscular Volume 87.5 fL (78.0-98.0); Platelet Count 169 10x3/uL (130-400); RBC Distribution Width 13.2 % (11.5-14.5); Red Blood Cell (RBC) Count 5.05 mill/uL (4.70-6.10)
[2024-03-23 05:50] LABS: Anion Gap 12 mmol/L (10-20); BUN (Urea Nitrogen) 11 mg/dL (8.4-25.7); Calc. Creatinine Clearance 70 mL/min (70-130); Calcium 8.7 mg/dL (7.8-10.44); Carbon Dioxide 26 mmol/L (23-31); Chloride 103 mmol/L (98-107); Estimated GFR 69; Glucose 122 mg/dL (83-110); Potassium 3.7 mmol/L (3.5-5.1); Sodium 137 mmol/L (136-145)
[2024-03-23] MEDS: Dutasteride 0.5 MG CAP PO SCH (08:08)
[2024-03-23] MEDS: Polyethylene Glycol 3350 17 GM Packet PO SCH (08:08)
[2024-03-23] MEDS: Sodium Chloride 0.9% 1,000 ML IV SCH (08:09)
[2024-03-23] MEDS: Pantoprazole DR 40 MG TAB PO SCH (08:09)
[2024-03-23] MEDS: HYDROcodone/Acetaminophen 7.5/325 mg Tablet PO PRN (22:53)
[2024-03-24 08:11] LABS: #Basophils 0.05 10x3/uL (0.0-0.2); #Eosinophils Less than 0.03 10x3/uL (0.0-0.7); %Basophils 0.4 % (0.0-1.0); %Eosinophils 0.1 % (0.0-10.0); %Lymphocytes 11.5 % (21.0-51.0); %Monocytes 8.2 % (0.0-10.0); %Neutrophils 79.3 % (42.0-75.0); Hematocrit 42.9 % (42.0-52.0); Hemoglobin 14.6 g/dL (14.0-18.0); Mean Corpuscular Volume 88.3 fL (78.0-98.0); Mean Platelet Volume 11.2 fL (7.4-10.4); Platelet Count 159 10x3/uL (130-400); RBC Distribution Width 13.5 % (11.5-14.5); Red Blood Cell (RBC) Count 4.86 mill/uL (4.70-6.10)
[2024-03-24 08:32] LABS: Anion Gap 13 mmol/L (10-20); BUN (Urea Nitrogen) 10 mg/dL (8.4-25.7); Calc. Creatinine Clearance 86 mL/min (70-130); Calcium 8.3 mg/dL (7.8-10.44); Carbon Dioxide 25 mmol/L (23-31); Chloride 105 mmol/L (98-107); Estimated GFR 88; Glucose 98 mg/dL (83-110); Potassium 3.5 mmol/L (3.5-5.1); Sodium 139 mmol/L (136-145)
[2024-03-25 05:15] LABS: #Basophils 0.06 10x3/uL (0.0-0.2); %Basophils 0.6 % (0.0-1.0); %Eosinophils 0.9 % (0.0-10.0); %Lymphocytes 16.8 % (21.0-51.0); %Monocytes 8.6 % (0.0-10.0); %Neutrophils 72.3 % (42.0-75.0); Hematocrit 45.9 % (42.0-52.0); Hemoglobin 15.6 g/dL (14.0-18.0); Mean Corpuscular Hemoglobin 29.6 pg (27.0-31.0); Mean Corpuscular Volume 87.1 fL (78.0-98.0); Mean Platelet Volume 11.6 fL (7.4-10.4); Platelet Count 166 10x3/uL (130-400); RBC Distribution Width 13.2 % (11.5-14.5); Red Blood Cell (RBC) Count 5.27 mill/uL (4.70-6.10)
[2024-03-25 06:02] LABS: Anion Gap 15 mmol/L (10-20); BUN (Urea Nitrogen) 11 mg/dL (8.4-25.7); Calc. Creatinine Clearance 81 mL/min (70-130); Calcium 9.2 mg/dL (7.8-10.44); Carbon Dioxide 28 mmol/L (23-31); Chloride 103 mmol/L (98-107); Estimated GFR 81; Glucose 100 mg/dL (83-110); Potassium 4.2 mmol/L (3.5-5.1); Sodium 142 mmol/L (136-145)
[2024-03-25 12:57] VITALS: BP 150/90; TEMP 98.8
== END 2024-03-25 16:03 | disposition home or self-care (01) | DRG 718 ==
LOC: SURG A 03-22 06:03 → IMCU/EMU 03-22 14:39 → SURG A 03-24 09:24
PROVIDERS: ADMIT Urology; ATTEND Urology
PROC: 0VB04ZZ Excision of Prostate, Percutaneous Endoscopic Approach (ICD-10-PCS; principal; 2024-03-22)
PROC: 8E0W4CZ Robotic Assisted Procedure of Trunk Region, Percutaneous Endoscopic Approach (ICD-10-PCS; 2024-03-22)
DX: N40.1 Benign prostatic hyperplasia with lower urinary tract symptoms (principal); R35.0 Frequency of micturition
CPT/HCPCS: 36415; 36416; 80048; 82570; 85025; 85610; 85730; 86850; 86900; 86901; 88307; A4333; C1713; C1889; C2613; J0665; J0694; J0696; J1100; J1642; J1956; J2250; J2704; J3010; J7030; S2900

== ENCOUNTER 2024-03-09 08:30 | Outpatient (CLI) | payer MEDICARE ==
[2024-03-09 10:30] LABS: #Basophils 0.05 10x3/uL (0.0-0.2); %Basophils 0.7 % (0.0-1.0); %Eosinophils 1.2 % (0.0-10.0); %Lymphocytes 20.7 % (21.0-51.0); %Neutrophils 68.4 % (42.0-75.0); Hematocrit 46.8 % (42.0-52.0); Hemoglobin 16.3 g/dL (14.0-18.0); Mean Corpuscular HGB CONC 34.8 g/dL (32.0-36.0); Mean Corpuscular Hemoglobin 29.7 pg (27.0-31.0); Mean Corpuscular Volume 85.4 fL (78.0-98.0); Mean Platelet Volume 11.9 fL (7.4-10.4); Platelet Count 155 10x3/uL (130-400); RBC Distribution Width 13.2 % (11.5-14.5); Red Blood Cell (RBC) Count 5.48 mill/uL (4.70-6.10)
[2024-03-09 10:44] LABS: INR-International Normal Ratio 1.1; PTT 32.4 sec (22.9-36.1); Prothrombin Time 14.4 sec (12.0-14.7)
[2024-03-09 10:45] LABS: Bacteria/HPF None Seen HPF (None Seen); Bilirubin Negative (Negative); Blood, Urine Negative (Negative); Clarity Clear (Clear); Glucose, Urine (Dipstick) Normal (Negative); Ketone, Urine Negative (Negative); Leukocyte Negative Leu/uL (Negative); Nitrite Negative (Negative); Protein, Urine (Dipstick) Negative (Neg-Trace); RBC/HPF None Seen HPF (0-3); Specific Gravity, Urine 1.003 (1.002-1.036); Squamous Epithelial None Seen HPF (0-3); Urobilinogen Normal mg/dL (Less than 2); WBC/HPF 0-3 HPF (0-3); pH, Urine 5.5 (5.0-9.0)
[2024-03-09 11:12] LABS: ALT (SGPT) 18 U/L (8-55); AST (SGOT) 30 U/L (5-34); Albumin 3.8 g/dL (3.4-4.8); Alkaline Phosphatase 63 U/L (40-110); Anion Gap 17 mmol/L (10-20); BUN (Urea Nitrogen) 14 mg/dL (8.4-25.7); Bilirubin, Total 1.8 mg/dL (0.2-1.2); Calc. Creatinine Clearance 0 mL/min (70-130); Calcium 6.9 mg/dL (7.8-10.44); Carbon Dioxide 21 mmol/L (23-31); Chloride 108 mmol/L (98-107); Estimated GFR 81; Globulin 3.2 g/dL (2.4-3.5); Glucose 99 mg/dL (83-110); Potassium 5.9 mmol/L (3.5-5.1); Sodium 140 mmol/L (136-145)
== END 2024-03-09 08:31 | disposition home or self-care (01) ==
LOC: LABBT 08:30
PROVIDERS: ATTEND Urology
DX: Z01.818 Encounter for other preprocedural examination (principal); Z12.5 Encounter for screening for malignant neoplasm of prostate; N40.1 Benign prostatic hyperplasia with lower urinary tract symptoms; R35.0 Frequency of micturition; F10.11 Alcohol abuse, in remission; F15.11 Other stimulant abuse, in remission; I48.91 Unspecified atrial fibrillation; R97.20 Elevated prostate specific antigen [PSA]; R33.9 Retention of urine, unspecified; N28.1 Cyst of kidney, acquired; Q63.1 Lobulated, fused and horseshoe kidney; N28.89 Other specified disorders of kidney and ureter; Z98.890 Other specified postprocedural states
CPT/HCPCS: 71046; 80053; 81001; 85025; 85610; 85730; 86850; 86900; 86901; 87086; 93005; 93010

== ENCOUNTER 2024-04-05 07:57 | Outpatient (CLI) | payer MEDICARE ==
[2024-04-05] MEDS ORDERED: Iopamidol-370 76% 500 ML BOT (X-RAY USE) FS ONE (08:02)
== END 2024-04-05 07:58 | disposition home or self-care (01) ==
LOC: RAD 07:57
PROVIDERS: ATTEND Urology
DX: N40.1 Benign prostatic hyperplasia with lower urinary tract symptoms (principal); Z90.79 Acquired absence of other genital organ(s)
CPT/HCPCS: 51600; 74430; Q9967